=== PATIENT | female | born 1935 | race Caucasian/White ===

== ENCOUNTER 2016-08-08 11:42 | Emergency (ER) | payer MEDICARE, BC ==
[~2016-08-08 11:42] MED LIST: ADVAIR230P INH; ADVAIR250 INH; AMOXIL500 MG PO; ASA5GR PO; ASAB PO; AT25 PO; AVAP150 PO; BISR PR; CALTRAT600 PO; CAT1 PO; CATPATCH1 TOP; CIP5 PO; CIPRO PO; COREG25 PO; COZ50 PO; CYMBALTA30 PO; CYMBALTA60 PO; DEPAK250ER PO; DEPAKOT250 PO; DOCUSOFT S100 MG PO; DSS PO; DULERA 200 MCG/13 GM INH; ENBREL25 MG SC; ENBREL50 MG/M1 SC; EXELON4.6T TOP; EXELON9.5T TOP; EYE OPH; FISH-EPA1000 MG PO; FOLIC PO; GENTEAL 15 ML O15 ML OPH; HALF81 PO; HIPREX1 GM PO; HUMIR1 SC; KLONO1 PO; KLONO5 PO; KLOR-CON 1010 MEQ PO; KRILLOIL PO; LEVAQUIN5T PO; LEVAQUIN750 MG PO; LOTEMAX OPH SUSP5 ML OPH; LOTEMAX OPH SUSP5 ML TOP; LOTEMAX0.5 % OPH; LOTEMAX3.5 GM OPH; LOTEPREDNOL 0.5% OPH; LOTEPREDNOL OPH; MACROBID PO; MELA3 PO; METHENAM HIP1 GM PO; MICRO-K10 MEQ PO; MIRALAXPKT PO; MOMUD PO; MULTIVIT/MIN PO; NAMENXR14 PO; NAMENXR28 PO; NORV5 PO; OMEGA-3 KRILL PO; OMNICEF300 PO; OS500+D PO; OXYTROL 3.3.9 MG/24 TOP; P1 PO; PEP20 PO; PLAQ200B PO; PRESERVISION A1 EAC1 PO; PRESERVISION A1 EACH PO; PRILO PO; PRILOSEC OTC20 MG PO; PROBIOTIC PO; PVC TOP; PVC V; REM15 PO; RESTASIS OPH; RISAQUAD PO; SEROQUEL1C PO; SEROQUEL25 PO; SEROQUEL50 MG PO; SIN25 PO; SUPER B-100 PO; SYSTANE ULTR OPH; T PO; TRAZ50 PO; TUMSROLL PO; VITAMIN D1000 UNI1 PO; WELLBUTRIN 150 MG PO; WELLSR150 PO; X25 PO; X5 PO; ZANTAC 150 PO; ZANTAC150 MG PO; ZESTRIL40 MG PO; ZOCOR20 PO; ZOCOR40 PO; ZOFRAN ODT4 MG PO; [UNRECOGNIZED DRUG - OTHER] PO; [UNRECOGNIZED DRUG - OTHER] PO; [UNRECOGNIZED DRUG - OTHER] PO
[2016-08-08] MEDS ORDERED: PREDNISONE2.5 MG PO (13:00)
[2016-08-08] MEDS ORDERED: SEROQUEL25 PO (13:01)
[2016-08-08 13:03] LABS: BASOPHILS 0.5 %; BASOPHILS ABSOLUTE 0.03 10/3/uL (0.0-0.16); EOSINOPHILS 1.1 %; EOSINOPHILS ABSOLUTE 0.07 10/3/uL (0.0-0.53); ER CBC TAT 0 Hrs 00 Mins; HEMATOCRIT 39.3 % (36.0-48.0); HEMOGLOBIN 12.7 g/dL (12.0-16.0); LYMPHOCYTES 20.7 %; LYMPHOCYTES ABSOLUTE 1.35 10/3/uL (0.67-4.30); MEAN CORPUS HGB CONC 32.3 g/dL (32.0-36.0); MEAN CORPUSCULAR HEMOGLOB 29.3 pg (26.0-34.0); MEAN CORPUSCULAR VOLUME 90.8 fL (80-100); MEAN PLATELET VOLUME 10.6 fL (9.2-13.0); MONOCYTES 9.6 %; MONOCYTES ABSOLUTE 0.63 10/3/uL (0.21-1.20); NEUTROPHILS 68.1 %; NEUTROPHILS ABSOLUTE 4.45 10/3/uL (2.02-8.40); PLATELET COUNT 178 10/3/uL (150-400); RBC DISTRIBUTION WIDTH 13.9 % (12.0-16.0); RED CELL COUNT 4.33 10/6/uL (4.0-5.6); WHITE BLOOD CELLS 6.5 10/3/uL (4.5-10.5)
[2016-08-08 13:05] LABS: MANUAL DIFF NO %
[2016-08-08 13:11] LABS: INTERNATIONAL NORMAL RATI 1.1 UNITS (-); PARTIAL THROMBO TIME 30.9 SEC (22.5-37.2); PROTIME (NOT ORD) 13.8 SEC (12.0-14.5)
[2016-08-08 13:19] LABS: BUN (BLOOD UREA NITROGEN) 14 MG/DL (6-23); CALCIUM, SERUM 9.2 MG/DL (8.5-10.4); CHEST PAIN PROFILE TAT 0 Hrs 19 Mins; CHLORIDE, SERUM 103 MMOL/L (96-112); CO2 (CARBON DIOXIDE) 29 MMOL/L (24-34); CREATININE 0.92 MG/DL (0.55-1.02); GFR AFRICAN AMERICAN 68 ML/MIN (>=60); GFR NON AFRICAN AMERICAN 59 ML/MIN (>=60); GLUCOSE, SERUM 103 MG/DL (60-99); POTASSIUM, SERUM 3.6 MMOL/L (3.5-5.3); SODIUM, SERUM 143 MMOL/L (135-148); TROPONIN I <0.02 NG/ML (<0.05)
== END 2016-08-08 16:30 | disposition home or self-care (01) ==
LOC: ER 11:42
PROVIDERS: Nurse Practitioner Family
DX: R07.89 Other chest pain (principal); F41.9 Anxiety disorder, unspecified; I10 Essential (primary) hypertension; K21.9 Gastro-esophageal reflux disease without esophagitis; F32.9 Major depressive disorder, single episode, unspecified; Z90.710 Acquired absence of both cervix and uterus; Z88.2 Allergy status to sulfonamides; Z88.5 Allergy status to narcotic agent; Z91.09 Other allergy status, other than to drugs and biological substances; Z79.82 Long term (current) use of aspirin; Z79.52 Long term (current) use of systemic steroids
CPT/HCPCS: 71010; 80048; 83735; 84484; 85025; 85610; 85730; 93005; 96374; 99285; A9270-GY